=== PATIENT | female | born 1940 | race Caucasian/White ===

== ENCOUNTER 2018-06-16 18:54 | Emergency (ER) | payer MEDICARE, OTHER ==
[~2018-06-16] VITALS: Ht 152.4 cm; Wt 52.3 kg
[2018-06-16 19:08] LABS: GLUCOSE,POINT OF CARE 151 MG/DL (70-110)
[2018-06-16] MEDS ORDERED: ATEN50TA PO (19:38)
[2018-06-16] MEDS ORDERED: ASPI-1182 PO (19:38)
[2018-06-16] MEDS ORDERED: HYDR-2924 PO (19:38)
[2018-06-16] MEDS ORDERED: ISOS20TA9 PO (19:38)
[2018-06-16] MEDS ORDERED: METF-960 PO (19:38)
[2018-06-16] MEDS ORDERED: AMLO-512 PO (19:38)
[2018-06-16] MEDS ORDERED: NACL1 PO (19:38)
[2018-06-16] MEDS ORDERED: ACET-2247 PO (19:38)
[2018-06-16] MEDS ORDERED: ATOR20TA86 PO (19:38)
[2018-06-16] MEDS ORDERED: SPIR25 PO (19:38)
[2018-06-16 20:32] VITALS: BP 133/56
== END 2018-06-16 21:01 | disposition home or self-care (01) ==
LOC: EMS 18:55
DX: S00.03XA Contusion of scalp, initial encounter (principal); E11.9 Type 2 diabetes mellitus without complications; I10 Essential (primary) hypertension; Z88.8 Allergy status to other drugs, medicaments and biological substances; Z88.0 Allergy status to penicillin; Z79.82 Long term (current) use of aspirin; W01.0XXA Fall on same level from slipping, tripping and stumbling without subsequent striking against object, initial encounter; Y93.89 Activity, other specified; Y92.89 Other specified places as the place of occurrence of the external cause; Y99.8 Other external cause status
CPT/HCPCS: 70450

== ENCOUNTER 2019-05-22 20:56 | Emergency (ER) | payer MEDICARE, OTHER ==
[~2019-05-22] VITALS: Ht 157.5 cm; Wt 50.0 kg
[~2019-05-22 20:56] MED LIST: ACET-2247 PO; AMLO10TA7 PO; ASPI-1182 PO; ATEN50TA PO; ATOR20TA86 PO; HYDR-2924 PO; ISOS20TA9 PO; METF-960 PO; NACL1 PO; SPIR25 PO
[2019-05-22 23:10] VITALS: BP 148/80
[2019-05-22] MEDS ORDERED: LOSA50TA2 PO (23:14)
[2019-05-22] MEDS ORDERED: LORA-703 PO (23:14)
[2019-05-22] MEDS ORDERED: FLUT16H NASAL (23:14)
[2019-05-22] MEDS ORDERED: ACET160S2 PO (23:14)
[2019-05-22] MEDS ORDERED: ADJU0.5V IM (23:14)
[2019-05-22] MEDS ORDERED: ISOS10TA2 PO (23:14)
[2019-05-22] MEDS ORDERED: MULT1CAP32 PO (23:14)
[2019-05-22] MEDS ORDERED: PredniSONE 20 MG TABLET PO ONE (23:15)
[2019-05-22] MEDS ORDERED: DiphenhydrAMINE HCL 50 MG CAPSULE PO ONE (23:15)
[2019-05-22] MEDS ORDERED: FAMOTIDINE 20 MG TABLET PO ONE (23:15)
== END 2019-05-22 23:55 | disposition home or self-care (01) ==
LOC: EMS 20:56
DX: T78.49XA Other allergy, initial encounter (principal); R21 Rash and other nonspecific skin eruption; I10 Essential (primary) hypertension; Z79.899 Other long term (current) drug therapy; Z88.8 Allergy status to other drugs, medicaments and biological substances; Z88.1 Allergy status to other antibiotic agents; X58.XXXA Exposure to other specified factors, initial encounter
CPT/HCPCS: 99284; J7512

== ENCOUNTER 2023-08-29 10:55 | Inpatient (IN) | payer MEDICARE, OTHER ==
[~2023-08-29] VITALS: Ht 149.9 cm; Wt 52.7 kg
[~2023-08-29 10:55] MED LIST changes: -ACET-2247 PO; -AMLO10TA7 PO; -ASPI-1182 PO; +ASPI-1444 PO; +ATEN-72 PO; -ATEN50TA PO; +ATOR20TA PO; -ATOR20TA86 PO; -HYDR-2924 PO; -ISOS20TA9 PO; +METF-1211 PO; -METF-960 PO; +MULT1CAP32 PO; -NACL1 PO; +PANT-31 PO; -SPIR25 PO
[2023-08-29 11:39] LABS: BASOPHILS % (AUTO) 0.2 % (0.0-2.0); EOSINOPHILS % (AUTO) 0.9 % (1.0-6.0); HEMATOCRIT 38.1 % (36-46); HEMOGLOBIN 12.7 g/dL (12.0-16.0); LYMPHOCYTES # (AUTO) 1.2 K/uL (1.0-4.8); LYMPHOCYTES % (AUTO) 12.2 % (22.0-44.0); MEAN CORPUSCULAR HEMOGLOBIN 31.3 pg (26.0-34.0); MEAN CORPUSCULAR HGB CONC 33.4 G/dL (31.0-37.0); MEAN CORPUSCULAR VOLUME 94 fL (80-100); MONOCYTES # (AUTO) 0.4 K/uL (0.1-1.0); MONOCYTES % (AUTO) 4.1 % (2.0-9.0); NEUTROPHILS # (AUTO) 8.3 K/uL (1.8-7.7); NEUTROPHILS % (AUTO) 82.6 % (40.0-70.0); PLATELET COUNT (AUTO) 358 K/uL (150-450); RED BLOOD CELL COUNT(AUTO) 4.06 MIL/uL (4.00-5.20); RED CELL DISTRIBUTION WIDTH 12.9 % (11.5-14.5); WHITE BLOOD COUNT (AUTO) 10.1 K/uL (4.5-11.0)
[2023-08-29 11:52] LABS: CALCIUM, TOTAL 9.9 mg/dL (8.8-10.5); CREATININE 1.66 mg/dL (0.60-1.30); POTASSIUM 4.3 mmol/L (3.5-5.1)
[2023-08-29 12:00] LABS: TROPONIN I-HIGH SENSITIVITY 20 ng/L (<51)
[2023-08-29 12:02] LABS: ALBUMIN 4.1 g/dL (3.4-5.0); BILIRUBIN,TOTAL 0.6 mg/dL (0.1-1.0); TOTAL PROTEIN, SERUM 8.7 g/dL (6.4-8.2)
[2023-08-29] MEDS ORDERED: ONDANSETRON HCL 4 MG/2 ML VIAL IVP ONE (12:15)
[2023-08-29] MEDS ORDERED: SODIUM CHLORIDE 0.9% 1,000 ML IV ONE ×3 (12:15→14:15)
[2023-08-29] MEDS ORDERED: CALC-1271 PO (12:17)
[2023-08-29] MEDS ORDERED: ATOR20TA65 PO (12:17)
[2023-08-29] MEDS ORDERED: EMPA10TA3 PO (12:17)
[2023-08-29] MEDS ORDERED: ASPI-1522 PO (12:17)
[2023-08-29] MEDS ORDERED: FURO20TA4 PO (12:17)
[2023-08-29] MEDS ORDERED: MULT-1366 PO (12:17)
[2023-08-29] MEDS ORDERED: RIVA15TA PO (12:17)
[2023-08-29] MEDS ORDERED: SACU1TAB PO (12:17)
[2023-08-29] MEDS ORDERED: SITA25 PO (12:17)
[2023-08-29] MEDS ORDERED: AMLO10TA55 PO (12:17)
[2023-08-29 13:58] LABS: APPEARANCE,URINE CLEAR (CLEAR); BILIRUBIN,URINE NEGATIVE (NEGATIVE); COLOR,URINE LIGHT YELLOW (YELLOW); GLUCOSE, URINE (UA) >=1000 mg/dL (NEGATIVE); KETONES,URINE NEGATIVE (NEGATIVE); LEUKOCYTE ESTERASE ,URINE NEGATIVE (NEGATIVE); NITRATE,URINE NEGATIVE (NEGATIVE); OCCULT BLOOD,URINE NEGATIVE (NEGATIVE); PROTEIN,URINE NEGATIVE (NEGATIVE); SPECIFIC GRAVITIY, URINE 1.007 (1.003-1.030); UROBILINOGEN,URINE <=1.0 mg/dL (<=1.0)
[2023-08-29] MEDS ORDERED: MAGNESIUM HYDROXIDE SUSPENSION 30 ML UDCUP PO PRN (14:15)
[2023-08-29] MEDS ORDERED: ACETAMINOPHEN 325 MG TABLET PO PRN (14:15)
[2023-08-29] MEDS ORDERED: INSULIN LISPRO 100 UNITS/ML SQ PRN (14:15)
[2023-08-29] MEDS ORDERED: ONDANSETRON HCL 4 MG/2 ML VIAL IVP PRN (14:15)
[2023-08-29] MEDS ORDERED: DEXTROSE 50%-WATER 25 GM/50 ML SYRINGE IVP PRN (14:15)
[2023-08-29 14:18] LABS: BACTERIA,URINE None Seen /HPF (None Seen); RBC,URINE None Seen /HPF (0-2); SQUAMOUS EPITHELIAL CELL,UR Rare /LPF (None Seen); WBC,URINE None Seen /HPF (0-5)
[2023-08-29 14:19] LABS: COVID AG,FIA SOURCE NASAL SWAB
[2023-08-29 14:40] LABS: SARS-COV2 (COVID) ANTIGEN,FIA Negative (Negative)
[2023-08-29] MEDS: RIVAROXABAN 15 MG TABLET PO SCH ×2 (17:30→17:33)
[2023-08-29 20:21] LABS: GLUCOMETER DEV NAME(LOC) ERT.5; GLUCOSE,POINT OF CARE 112 MG/DL (70-110)
[2023-08-29 20:36] VITALS: BP 120/59; PULSE 84; RESP 18; TEMP 98; O2SAT 95
[2023-08-29 21:31] LABS: GLUCOMETER DEV NAME(LOC) 5N.1C; GLUCOSE,POINT OF CARE 119 MG/DL (70-110)
[2023-08-29 23:15] VITALS: BP 117/66; PULSE 84; RESP 18; TEMP 98; O2SAT 98
[2023-08-30 04:44] VITALS: BP 122/90; PULSE 71; RESP 18; TEMP 97.8; O2SAT 97
[2023-08-30 05:42] LABS: GLUCOMETER DEV NAME(LOC) 5S.2C; GLUCOSE,POINT OF CARE 112 MG/DL (70-110)
[2023-08-30 07:21] VITALS: BP 123/60; PULSE 72; RESP 18; TEMP 98; O2SAT 98
[2023-08-30] MEDS: FAMOTIDINE 20 MG TABLET PO SCH (08:29)
[2023-08-30 11:47] VITALS: BP 116/62; PULSE 78; RESP 18; TEMP 98; O2SAT 97
[2023-08-30 11:51] LABS: GLUCOMETER DEV NAME(LOC) 5N.1C; GLUCOSE,POINT OF CARE 126 MG/DL (70-110)
[2023-08-30 15:50] VITALS: BP 114/55; PULSE 71; RESP 18; TEMP 98.2; O2SAT 98
[2023-08-30 17:26] LABS: GLUCOMETER DEV NAME(LOC) 5S.2C; GLUCOSE,POINT OF CARE 105 MG/DL (70-110)
[2023-08-30] MEDS ORDERED: RIVAROXABAN 15 MG TABLET PO SCH (18:00)
[2023-08-30 19:48] VITALS: BP 137/62; PULSE 79; RESP 18; TEMP 98.1; O2SAT 95
[2023-08-30] MEDS ORDERED: ATORVASTATIN CALCIUM 20 MG TABLET PO SCH (21:00)
[2023-08-31 00:43] VITALS: BP 131/62; PULSE 94; RESP 19; TEMP 98.1; O2SAT 95
[2023-08-31 04:18] VITALS: BP 133/74; PULSE 74; RESP 18; TEMP 98; O2SAT 95
[2023-08-31 07:06] LABS: BASOPHILS % (AUTO) 0.6 % (0.0-2.0); EOSINOPHILS % (AUTO) 1.1 % (1.0-6.0); HEMOGLOBIN 12.2 g/dL (12.0-16.0); LYMPHOCYTES # (AUTO) 1.2 K/uL (1.0-4.8); LYMPHOCYTES % (AUTO) 23.8 % (22.0-44.0); MEAN CORPUSCULAR HEMOGLOBIN 31.6 pg (26.0-34.0); MEAN CORPUSCULAR HGB CONC 33.8 G/dL (31.0-37.0); MEAN CORPUSCULAR VOLUME 94 fL (80-100); MONOCYTES # (AUTO) 0.5 K/uL (0.1-1.0); MONOCYTES % (AUTO) 10.2 % (2.0-9.0); NEUTROPHILS # (AUTO) 3.3 K/uL (1.8-7.7); NEUTROPHILS % (AUTO) 64.3 % (40.0-70.0); PLATELET COUNT (AUTO) 289 K/uL (150-450); RED BLOOD CELL COUNT(AUTO) 3.84 MIL/uL (4.00-5.20); WHITE BLOOD COUNT (AUTO) 5.1 K/uL (4.5-11.0)
[2023-08-31 08:00] VITALS: BP 133/73; PULSE 93; RESP 18; TEMP 97.6; O2SAT 99
[2023-08-31 08:18] LABS: CALCIUM, TOTAL 9.4 mg/dL (8.8-10.5); CREATININE 1.24 mg/dL (0.60-1.30); POTASSIUM 4.1 mmol/L (3.5-5.1)
[2023-08-31 08:31] LABS: GLUCOMETER DEV NAME(LOC) 5S.2C; GLUCOSE,POINT OF CARE 113 MG/DL (70-110)
[2023-08-31 08:31] LABS: GLUCOMETER DEV NAME(LOC) 5N.1C; GLUCOSE,POINT OF CARE 105 MG/DL (70-110)
[2023-08-31] MEDS: FAMOTIDINE 20 MG TABLET PO SCH (08:57)
[2023-08-31] MEDS ORDERED: ATENOLOL 25 MG TABLET PO SCH (09:00)
[2023-08-31] MEDS ORDERED: ASPIRIN 81 MG CHEWABLE TABLET PO SCH (09:00)
[2023-08-31] MEDS ORDERED: ASPIRIN 81 MG DR TABLET PO SCH (09:00)
[2023-08-31 11:30] VITALS: BP 122/76; PULSE 71; RESP 20; TEMP 97.9; O2SAT 97
[2023-08-31] MEDS ORDERED: METO5TAB95 PO (12:05)
[2023-08-31 12:26] LABS: GLUCOMETER DEV NAME(LOC) 5N.1C; GLUCOSE,POINT OF CARE 92 MG/DL (70-110)
== END 2023-08-31 15:15 | disposition home health service (06) | DRG 249 ==
LOC: EMS 10:55 → AHU 12:56 → 5S 19:04
PROVIDERS: ADMIT Internal Medicine; ATTEND Internal Medicine
DX: A08.4 Viral intestinal infection, unspecified (principal); N17.0 Acute kidney failure with tubular necrosis; E44.0 Moderate protein-calorie malnutrition; E87.1 Hypo-osmolality and hyponatremia; I48.0 Paroxysmal atrial fibrillation; E11.65 Type 2 diabetes mellitus with hyperglycemia; E86.0 Dehydration; Z20.822 Contact with and (suspected) exposure to COVID-19; F03.90 Unspecified dementia, unspecified severity, without behavioral disturbance, psychotic disturbance, mood disturbance, and anxiety; I10 Essential (primary) hypertension; Z79.899 Other long term (current) drug therapy; Z83.3 Family history of diabetes mellitus; Z88.0 Allergy status to penicillin; Z88.8 Allergy status to other drugs, medicaments and biological substances; Z68.23 Body mass index [BMI] 23.0-23.9, adult; Z79.01 Long term (current) use of anticoagulants; Z79.84 Long term (current) use of oral hypoglycemic drugs
CPT/HCPCS: 70450; 71045; 74176; 80048; 80053; 81001; 82962; 83690; 84484; 85025; 93005; 97116; 97162; 99285; J2405; J7030; 36415-L1; 36415-TC

== ENCOUNTER 2024-09-22 07:42 | Emergency (ER) | payer MEDICARE, OTHER ==
[~2024-09-22] VITALS: Ht 144.8 cm; Wt 54.5 kg
[~2024-09-22 07:42] MED LIST changes: +AMLO10TA55 PO; -ASPI-1444 PO; +ASPI-1522 PO; -ATEN-72 PO; -ATOR20TA PO; +ATOR20TA65 PO; +CALC-1271 PO; +EMPA10TA3 PO; +FURO20TA4 PO; -METF-1211 PO; +MULT-1366 PO; -MULT1CAP32 PO; -PANT-31 PO; +RIVA15TA PO; +SITA25 PO
[2024-09-22 08:04] VITALS: TEMP 98.7
[2024-09-22 09:12] LABS: BASOPHILS % (AUTO) 0.2 % (0.0-2.0); EOSINOPHILS % (AUTO) 0.1 % (1.0-6.0); HEMOGLOBIN 11.5 g/dL (12.0-16.0); LYMPHOCYTES # (AUTO) 0.7 K/uL (1.0-4.8); LYMPHOCYTES % (AUTO) 9.9 % (22.0-44.0); MEAN CORPUSCULAR HEMOGLOBIN 27.5 pg (26.0-34.0); MEAN CORPUSCULAR VOLUME 84 fL (80-100); MONOCYTES # (AUTO) 0.5 K/uL (0.1-1.0); MONOCYTES % (AUTO) 7.2 % (2.0-9.0); NEUTROPHILS # (AUTO) 5.8 K/uL (1.8-7.7); NEUTROPHILS % (AUTO) 82.6 % (40.0-70.0); PLATELET COUNT (AUTO) 346 K/uL (150-450); RED BLOOD CELL COUNT(AUTO) 4.19 MIL/uL (4.00-5.20); RED CELL DISTRIBUTION WIDTH 17.8 % (11.5-14.5)
[2024-09-22 09:13] LABS: CALCIUM, TOTAL 8.9 mg/dL (8.8-10.5); CREATININE 1.33 mg/dL (0.60-1.30); POTASSIUM 3.6 mmol/L (3.5-5.1)
[2024-09-22 09:19] LABS: ALBUMIN 3.1 g/dL (3.4-5.0); BILIRUBIN,DIRECT 0.2 mg/dL (0.00-0.20); TOTAL PROTEIN, SERUM 8.8 g/dL (6.4-8.2)
[2024-09-22 11:50] VITALS: BP 135/66; PULSE 89; RESP 18; O2SAT 100
[2024-09-22 11:54] LABS: APPEARANCE,URINE HAZY (CLEAR); BILIRUBIN,URINE NEGATIVE (NEGATIVE); COLOR,URINE LIGHT YELLOW (YELLOW); GLUCOSE, URINE (UA) >=1000 mg/dL (NEGATIVE); KETONES,URINE NEGATIVE (NEGATIVE); LEUKOCYTE ESTERASE ,URINE MODERATE (NEGATIVE); NITRATE,URINE NEGATIVE (NEGATIVE); OCCULT BLOOD,URINE NEGATIVE (NEGATIVE); PROTEIN,URINE TRACE mg/dL (NEGATIVE); SPECIFIC GRAVITIY, URINE 1.013 (1.003-1.030); UROBILINOGEN,URINE <=1.0 mg/dL (<=1.0)
[2024-09-22 12:01] LABS: BACTERIA,URINE Moderate /HPF (None Seen); RBC,URINE 0-2 /HPF (0-2); SQUAMOUS EPITHELIAL CELL,UR Many /LPF (None Seen)
[2024-09-22] MEDS: ACETAMINOPHEN 500 MG TABLET PO ONE (12:11)
[2024-09-22] MEDS: LIDOCAINE 5% TRANSDERMAL PATCH TD ONE (12:12)
[2024-09-22] MEDS ORDERED: LOSA-381 PO (12:14)
[2024-09-22] MEDS ORDERED: ATEN-72 PO (12:14)
[2024-09-22] MEDS ORDERED: FURO20TA5 PO (12:14)
== END 2024-09-22 12:57 | disposition home or self-care (01) ==
LOC: EMS 07:48
DX: S22.000A Wedge compression fracture of unspecified thoracic vertebra, initial encounter for closed fracture (principal); R07.89 Other chest pain; M25.551 Pain in right hip; E11.9 Type 2 diabetes mellitus without complications; E87.1 Hypo-osmolality and hyponatremia; I10 Essential (primary) hypertension; Z88.0 Allergy status to penicillin; Z88.8 Allergy status to other drugs, medicaments and biological substances; Z79.01 Long term (current) use of anticoagulants; Z79.82 Long term (current) use of aspirin; Z79.84 Long term (current) use of oral hypoglycemic drugs; W19.XXXA Unspecified fall, initial encounter; Y93.89 Activity, other specified; Y92.89 Other specified places as the place of occurrence of the external cause; Y99.8 Other external cause status
CPT/HCPCS: 71045; 72128; 72131; 73521; 80048; 80076; 81001; 82962; 83690; 85025; 87086; 93005; 99285; 36415-L1; 36415-TC

== ENCOUNTER 2025-05-29 04:50 | Inpatient (IN) | payer MEDICARE, OTHER ==
[~2025-05-29] VITALS: Ht 157.5 cm; Wt 44.7 kg
[~2025-05-29 04:50] MED LIST changes: +ATEN-72 PO; -FURO20TA4 PO; +FURO20TA5 PO; +LOSA-381 PO
[2025-05-29 05:31] LABS: GLUCOMETER DEV NAME(LOC) ER.7; GLUCOSE,POINT OF CARE 138 MG/DL (70-110)
[2025-05-29 06:34] LABS: PLATELET COUNT (AUTO) 340 K/uL (150-450); RED BLOOD CELL COUNT(AUTO) 3.78 MIL/uL (4.00-5.20); RED CELL DISTRIBUTION WIDTH 13.9 % (11.5-14.5); WHITE BLOOD COUNT (AUTO) 5.0 K/uL (4.5-11.0)
[2025-05-29 06:45] LABS: CALCIUM, TOTAL 8.7 mg/dL (8.8-10.5); CREATININE 1.15 mg/dL (0.60-1.30); GLOMERULAR FILTR. RATE CALC 45.0 mL/min (>60); GLUCOSE,RANDOM 132.0 mg/dL (70-110); UREA NITROGEN, BLOOD 20.0 mg/dL (7-18)
[2025-05-29 06:48] LABS: SODIUM SERUM 123.0 mmol/L (136-145)
[2025-05-29 06:53] LABS: ASPARTATE AMINOTRANSFERASE 38.0 U/L (15-37); TOTAL PROTEIN, SERUM 8.5 g/dL (6.4-8.2)
[2025-05-29] MEDS ORDERED: SODIUM CHLORIDE 0.9% 1,000 ML IV ONE (07:15)
[2025-05-29 07:21] LABS: TROPONIN I-HIGH SENSITIVITY 179 ng/L (<51)
[2025-05-29] MEDS ORDERED: ONDANSETRON HCL 4 MG/2 ML VIAL IVP PRN (08:30)
[2025-05-29 09:03] LABS: TROPONIN I-HIGH SENSITIVITY 175 ng/L (<51)
[2025-05-29] MEDS: PANTOPRAZOLE SODIUM 40 MG DR TABLET PO SCH (10:01)
[2025-05-29] MEDS: DOCUSATE SODIUM 100 MG CAPSULE PO SCH (10:01)
[2025-05-29 10:53] LABS: APPEARANCE,URINE CLEAR (CLEAR); GLUCOSE, URINE (UA) NEGATIVE (NEGATIVE); LEUKOCYTE ESTERASE ,URINE NEGATIVE (NEGATIVE); NITRATE,URINE NEGATIVE (NEGATIVE); OCCULT BLOOD,URINE NEGATIVE (NEGATIVE); SPECIFIC GRAVITIY, URINE 1.006 (1.003-1.030)
[2025-05-29 12:58] LABS: TROPONIN I-HIGH SENSITIVITY 158 ng/L (<51)
[2025-05-29 14:45] VITALS: BP 145/64; PULSE 95; RESP 18; TEMP 98.2; O2SAT 97
[2025-05-29 15:38] LABS: CALCIUM, TOTAL 8.6 mg/dL (8.8-10.5); CREATININE 0.92 mg/dL (0.60-1.30); GLOMERULAR FILTR. RATE CALC 58.0 mL/min (>60); GLUCOSE,RANDOM 120.0 mg/dL (70-110); SODIUM SERUM 129.0 mmol/L (136-145); UREA NITROGEN, BLOOD 13.0 mg/dL (7-18)
[2025-05-29] MEDS: HEPARIN SODIUM,PORCINE 5,000 UNITS/ML VIAL SQ SCH (16:13)
[2025-05-29 17:33] VITALS: BP 120/58; PULSE 68
[2025-05-29] MEDS ORDERED: DEXTROSE 50%-WATER 25 GM/50 ML SYRINGE IVP PRN (17:45)
[2025-05-29] MEDS: RIVAROXABAN 15 MG TABLET PO SCH (18:29)
[2025-05-29] MEDS: DEXTROSE 5%-WATER 250 ML IV ONE (18:30)
[2025-05-29 20:00] VITALS: BP 122/58; PULSE 74; RESP 18; TEMP 98.2; O2SAT 98
[2025-05-29] MEDS: ATORVASTATIN CALCIUM 20 MG TABLET PO SCH (21:29)
[2025-05-29 21:40] LABS: GLUCOMETER DEV NAME(LOC) 5S.1E; GLUCOSE,POINT OF CARE 119 MG/DL (70-110)
[2025-05-29] MEDS: INSULIN GLARGINE,HUM.REC.ANLOG 100 UNITS/ML SQ SCH (21:40)
[2025-05-29 23:21] VITALS: RESP 16; O2SAT 99
[2025-05-29] MEDS: ACETAMINOPHEN 325 MG TABLET PO PRN (23:21)
[2025-05-29 23:33] VITALS: BP 110/60; PULSE 64
[2025-05-29 23:52] VITALS: BP 117/54; PULSE 79; RESP 18; TEMP 97.9; O2SAT 98
[2025-05-30 01:33] VITALS: BP 110/60; PULSE 62
[2025-05-30 04:12] VITALS: BP 122/51; PULSE 61; RESP 17; TEMP 98.1; O2SAT 99
[2025-05-30 07:08] LABS: PLATELET COUNT (AUTO) 310 K/uL (150-450); RED BLOOD CELL COUNT(AUTO) 3.71 MIL/uL (4.00-5.20); RED CELL DISTRIBUTION WIDTH 13.8 % (11.5-14.5); WHITE BLOOD COUNT (AUTO) 5.5 K/uL (4.5-11.0)
[2025-05-30 07:19] LABS: CALCIUM, TOTAL 8.3 mg/dL (8.8-10.5); CREATININE 0.78 mg/dL (0.60-1.30); GLOMERULAR FILTR. RATE CALC > 60 mL/min (>60); GLUCOSE,RANDOM 129 mg/dL (70-110); SODIUM SERUM 128 mmol/L (136-145); UREA NITROGEN, BLOOD 8 mg/dL (7-18)
[2025-05-30 08:07] VITALS: BP 122/65; PULSE 78; RESP 16; TEMP 97.7; O2SAT 97
[2025-05-30] MEDS: ASPIRIN 81 MG DR TABLET PO SCH (08:49)
[2025-05-30 11:22] VITALS: BP 117/67; PULSE 83; RESP 16; TEMP 97.7; O2SAT 100
[2025-05-30 12:00] LABS: GLUCOMETER DEV NAME(LOC) 5N.2C; GLUCOSE,POINT OF CARE 127 MG/DL (70-110)
[2025-05-30] MEDS: SODIUM CHLORIDE 0.9% 500 ML IV ONE (14:31)
[2025-05-30 15:47] VITALS: BP 120/78; PULSE 87; RESP 16; TEMP 97.7; O2SAT 99
[2025-05-30 15:51] LABS: GLUCOMETER DEV NAME(LOC) 5S.1E; GLUCOSE,POINT OF CARE 102 MG/DL (70-110)
[2025-05-30 16:08] LABS: TROPONIN I-HIGH SENSITIVITY 89 ng/L (<51)
[2025-05-30 20:00] VITALS: BP 115/57; PULSE 83; RESP 18; TEMP 98.1; O2SAT 98
[2025-05-30 20:31] LABS: GLUCOMETER DEV NAME(LOC) 5N.2C; GLUCOSE,POINT OF CARE 96 MG/DL (70-110)
[2025-05-30 20:31] LABS: GLUCOMETER DEV NAME(LOC) 5N.2C; GLUCOSE,POINT OF CARE 189 MG/DL (70-110)
[2025-05-30] MEDS: INSULIN LISPRO 100 UNITS/ML SQ PRN (21:08)
[2025-05-30] MEDS: MELATONIN 3 MG TABLET PO PRN (22:25)
[2025-05-31] VITALS (7 sets, daily range): BP systolic 115–140; BP diastolic 48–78; PULSE 71–105; RESP 16–18; TEMP 97.5–98.1; O2SAT 99–100
[2025-05-31 02:04] LABS: CREATININE,URINE RANDOM 23.8 mg/dL (30.0-125.0)
[2025-05-31 08:07] LABS: CALCIUM, TOTAL 8.2 mg/dL (8.8-10.5); CREATININE 0.80 mg/dL (0.60-1.30); GLOMERULAR FILTR. RATE CALC > 60 mL/min (>60); GLUCOSE,RANDOM 109 mg/dL (70-110); SODIUM SERUM 128 mmol/L (136-145); UREA NITROGEN, BLOOD 10 mg/dL (7-18)
[2025-05-31 08:09] LABS: PLATELET COUNT (AUTO) 303 K/uL (150-450); RED BLOOD CELL COUNT(AUTO) 3.57 MIL/uL (4.00-5.20); RED CELL DISTRIBUTION WIDTH 14.3 % (11.5-14.5); WHITE BLOOD COUNT (AUTO) 5.7 K/uL (4.5-11.0)
[2025-05-31 08:20] LABS: TROPONIN I-HIGH SENSITIVITY 59 ng/L (<51)
[2025-05-31 09:21] LABS: GLUCOMETER DEV NAME(LOC) 5S.1E; GLUCOSE,POINT OF CARE 111 MG/DL (70-110)
[2025-05-31 11:56] LABS: GLUCOMETER DEV NAME(LOC) 5S.1E; GLUCOSE,POINT OF CARE 169 MG/DL (70-110)
[2025-05-31] MEDS: LIDOCAINE 5% TRANSDERMAL PATCH TD SCH (14:08)
[2025-05-31 20:00] LABS: GLUCOMETER DEV NAME(LOC) 5S.1E; GLUCOSE,POINT OF CARE 154 MG/DL (70-110)
[2025-05-31] MEDS: -LIDODERM PATCH NOTE- MISC SCH (21:31)
[2025-05-31 21:56] LABS: GLUCOMETER DEV NAME(LOC) 5N.2C; GLUCOSE,POINT OF CARE 154 MG/DL (70-110)
[2025-06-01] VITALS (8 sets, daily range): BP systolic 112–143; BP diastolic 59–76; PULSE 76–110; RESP 15–24; TEMP 97.5–98.2; O2SAT 96–100
[2025-06-01 07:45] LABS: PLATELET COUNT (AUTO) 337 K/uL (150-450); RED BLOOD CELL COUNT(AUTO) 3.66 MIL/uL (4.00-5.20); RED CELL DISTRIBUTION WIDTH 14.4 % (11.5-14.5); WHITE BLOOD COUNT (AUTO) 4.4 K/uL (4.5-11.0)
[2025-06-01 07:55] LABS: CALCIUM, TOTAL 7.8 mg/dL (8.8-10.5); CREATININE 0.81 mg/dL (0.60-1.30); GLOMERULAR FILTR. RATE CALC > 60 mL/min (>60); GLUCOSE,RANDOM 98 mg/dL (70-110); SODIUM SERUM 131 mmol/L (136-145); UREA NITROGEN, BLOOD 11 mg/dL (7-18)
[2025-06-01 12:06] LABS: GLUCOMETER DEV NAME(LOC) 5N.2C; GLUCOSE,POINT OF CARE 146 MG/DL (70-110)
[2025-06-01] MEDS: METOPROLOL TARTRATE 25 MG TABLET PO SCH (21:21)
[2025-06-02 00:14] VITALS: BP 118/55; PULSE 71; RESP 17; TEMP 98.2; O2SAT 100
[2025-06-02 04:12] VITALS: BP 119/58; PULSE 65; RESP 17; TEMP 97.5; O2SAT 100
[2025-06-02 06:32] LABS: PLATELET COUNT (AUTO) 369 K/uL (150-450); RED BLOOD CELL COUNT(AUTO) 3.83 MIL/uL (4.00-5.20); RED CELL DISTRIBUTION WIDTH 14.5 % (11.5-14.5); WHITE BLOOD COUNT (AUTO) 4.5 K/uL (4.5-11.0)
[2025-06-02 06:47] LABS: CALCIUM, TOTAL 8.5 mg/dL (8.8-10.5); CREATININE 0.82 mg/dL (0.60-1.30); GLOMERULAR FILTR. RATE CALC > 60 mL/min (>60); GLUCOSE,RANDOM 122 mg/dL (70-110); SODIUM SERUM 131 mmol/L (136-145); UREA NITROGEN, BLOOD 14 mg/dL (7-18)
[2025-06-02 08:17] VITALS: BP 126/91; PULSE 89; RESP 18; TEMP 97.9; O2SAT 99
[2025-06-02 10:41] LABS: GLUCOMETER DEV NAME(LOC) 5S.1E; GLUCOSE,POINT OF CARE 117 MG/DL (70-110)
[2025-06-02 10:41] LABS: GLUCOMETER DEV NAME(LOC) 5S.1E; GLUCOSE,POINT OF CARE 168 MG/DL (70-110)
[2025-06-02 10:41] LABS: GLUCOMETER DEV NAME(LOC) 5S.1E; GLUCOSE,POINT OF CARE 101 MG/DL (70-110)
[2025-06-02 11:46] VITALS: BP 131/61; PULSE 77; RESP 18; TEMP 97.5; O2SAT 99
[2025-06-02 12:46] LABS: GLUCOMETER DEV NAME(LOC) 5N.2C; GLUCOSE,POINT OF CARE 116 MG/DL (70-110)
[2025-06-02] MEDS ORDERED: MELA3TAB89 PO (13:53)
[2025-06-02] MEDS ORDERED: LIDO700A30 TD (13:53)
[2025-06-02] MEDS ORDERED: METO25 PO (13:53)
[2025-06-02 15:55] LABS: GLUCOMETER DEV NAME(LOC) 5S.1E; GLUCOSE,POINT OF CARE 128 MG/DL (70-110)
== END 2025-06-02 16:20 | disposition home health service (06) | DRG 640 ==
LOC: EMS 04:50 → EDH 08:17 → 5N 14:55
PROVIDERS: ADMIT Internal Medicine; ATTEND Internal Medicine
DX: E87.1 Hypo-osmolality and hyponatremia (principal); E43 Unspecified severe protein-calorie malnutrition; I21.A1 Myocardial infarction type 2; M48.54XA Collapsed vertebra, not elsewhere classified, thoracic region, initial encounter for fracture; I13.0 Hypertensive heart and chronic kidney disease with heart failure and stage 1 through stage 4 chronic kidney disease, or unspecified chronic kidney disease; Z68.1 Body mass index [BMI] 19.9 or less, adult; N17.9 Acute kidney failure, unspecified; R00.1 Bradycardia, unspecified; I48.91 Unspecified atrial fibrillation; E78.5 Hyperlipidemia, unspecified; E11.22 Type 2 diabetes mellitus with diabetic chronic kidney disease; D64.9 Anemia, unspecified; Z79.4 Long term (current) use of insulin; R53.81 Other malaise; I50.9 Heart failure, unspecified; N18.31 Chronic kidney disease, stage 3a; I27.20 Pulmonary hypertension, unspecified; R33.9 Retention of urine, unspecified; I87.2 Venous insufficiency (chronic) (peripheral); F03.90 Unspecified dementia, unspecified severity, without behavioral disturbance, psychotic disturbance, mood disturbance, and anxiety; S00.03XA Contusion of scalp, initial encounter; M25.561 Pain in right knee; M25.562 Pain in left knee; T50.995A Adverse effect of other drugs, medicaments and biological substances, initial encounter; Y92.89 Other specified places as the place of occurrence of the external cause; W18.39XA Other fall on same level, initial encounter; Y93.89 Activity, other specified; Y99.8 Other external cause status; Z79.01 Long term (current) use of anticoagulants; Z83.3 Family history of diabetes mellitus; Z88.0 Allergy status to penicillin; Z88.8 Allergy status to other drugs, medicaments and biological substances; Z79.899 Other long term (current) drug therapy; Z79.82 Long term (current) use of aspirin
CPT/HCPCS: 51702; 70450; 71045; 72125; 72131; 73503; 74176; 80048; 80076; 81003; 82570; 82962; 83735; 83880; 83930; 83935; 84300; 84484; 85025; 85610; 85730; 93005; 93306; 97162; 97530; 99285; J1644; J1815; J7040; J7060; 36415-L1; 36415-TC